=== PATIENT | male | born 1980 | race Caucasian/White ===

== ENCOUNTER 2017-02-26 10:33 | Inpatient (IN) ==
[2017-02-26] MEDS ORDERED: NS 1,000 ML IV ONE (10:48)
[2017-02-26] MEDS ORDERED: ATIVAN IV ONE (10:48)
[2017-02-26] MEDS ORDERED: THIAMINE 100 MG in NS 50 ML IV ONE (11:00)
[2017-02-26 11:30] LABS: MANUAL DIFF NEEDED? NO
[2017-02-26 11:36] LABS: BASO% 0.5 % (0.0-0.8); EOS# 0.02 X1000 (0.0-0.7); EOS% 0.2 % (0.0-10.0); HEMATOCRIT 45.1 % (42.0-52.0); LYMPH# 1.06 X1000 (1.2-3.4); LYMPH% 11.1 % (20.5-51.1); MCH 34.3 PG (27-31); MCHC 35.5 g/dL (33-37); MCV 96.8 FL (81-99); MONO# 0.81 X1000 (0.11-0.59); MONO% 8.5 % (1.7-9.3); MPV 9.3 FL (7.4-10.4); NEUT% 79.7 % (42.2-75.2); PLT 156 X1000 (130-400); RBC 4.66 XMIL (4.7-6.1)
[2017-02-26 11:47] LABS: INR 0.91; PROTIME 9.5 Seconds (9.2-11.7); PTT 28.5 Seconds (22.0-36.0)
[2017-02-26] MEDS ORDERED: PROTONIX IV ONE (11:47)
[2017-02-26] MEDS ORDERED: SODIUM CHLORIDE 0.9% INJ ONE (11:47)
[2017-02-26 12:06] LABS: AGAP 20; ALBUMIN 4.8 g/dL (3.5-5.0); ALKALINE PHOSPHATASE 100 U/L (32-122); BUN 6 mg/dL (8-22); CHLORIDE 93 mmol/L (98-107); CK PROFILE 93 U/L (24-204); COSMO 270; GOT 311 U/L (10-34); GPT 398 U/L (10-44); MAGNESIUM 1.9 mg/dL (1.5-2.7); POTASSIUM 3.8 mmol/L (3.5-5.1); SODIUM 136 mmol/L (136-145); TCO2 23 mmol/L (25-35); TOTAL BILIRUBIN 0.97 mg/dL (0.20-1.00); TOTAL PROTEIN 7.7 g/dL (6.3-8.3)
[2017-02-26 12:46] LABS: URINE CULTURE NEEDED? NO; URINE MICRO REVIEW NEEDED? NO; URINE SOURCE CLEAN CATCH
[2017-02-26 12:50] LABS: BILIRUBIN URINE NEGATIVE (NEGATIVE); BLOOD URINE NEGATIVE (NEGATIVE); COLOR YELLOW; GLUCOSE URINE NEGATIVE (NEGATIVE); LEUKOCYTES URINE NEGATIVE (NEGATIVE); NITRITE URINE NEGATIVE (NEGATIVE); PROTEIN URINE NEGATIVE (NEGATIVE); TURBIDITY URINE CLEAR (CLEAR); UROBILINOGEN URINE NORMAL (NORMAL)
[2017-02-26 12:51] LABS: UR EPITHELIAL CELLS <10 /HPF (<10); URINE BACTERIA NEGATIVE /HPF; URINE RBC <10 /HPF (<10); URINE WBC <10 /HPF (<10)
[2017-02-26 13:05] LABS: UR AMPHETAMINES QUAL NONE DETECTED (NONE DETECT); UR BARBITUATES QUAL NONE DETECTED (NONE DETECT); UR BENZODIAZEPIN QUAL NONE DETECTED (NONE DETECT); UR CANNABINOIDS QUAL NONE DETECTED (NONE DETECT); UR COCAINE QUAL NONE DETECTED (NONE DETECT); UR METHADONE QUAL NONE DETECTED (NONE DETECT); UR OPIATES QUAL NONE DETECTED (NONE DETECT); UR OXYCODONE QUAL NONE DETECTED (NONE DETECT); UR PCP QUAL NONE DETECTED (NONE DETECT)
[2017-02-26] MEDS ORDERED: M.V.I.-12 10 ML, FOLIC ACID 1 MG, MAGNESIUM SULFATE 1 GM, THIAMINE 100 MG in NS 1,000 ML IV ONE (14:45)
[2017-02-26] MEDS ORDERED: M.V.I.-12 10 ML, FOLIC ACID 1 MG, MAGNESIUM SULFATE 1 GM, THIAMINE 100 MG in NS 1,000 ML IV SCH (15:00)
[2017-02-26] MEDS ORDERED: NS 1,000 ML IV PRN (17:29)
[2017-02-26] MEDS ORDERED: ZOFRAN IV PRN (17:29)
[2017-02-26] MEDS: PHENOBARBITAL IV PRN ×2 (18:02→23:42)
[2017-02-26] MEDS: PRILOSEC PO SCH (20:40)
[2017-02-26] MEDS: LIBRIUM PO PRN (20:40)
[2017-02-26] MEDS: ATIVAN IV PRN (20:48)
[2017-02-27] MEDS: LIBRIUM PO PRN (04:10)
[2017-02-27] MEDS: ATIVAN IV PRN ×4 (04:12→22:23)
[2017-02-27 06:45] LABS: MANUAL DIFF NEEDED? NO
[2017-02-27 06:55] LABS: BASO% 0.9 % (0.0-0.8); EOS# 0.15 X1000 (0.0-0.7); EOS% 1.9 % (0.0-10.0); HEMOGLOBIN 14.5 g/dL (14.0-18.0); IMM GRAN# 0.01 X1000 (0.0-0.04); IMM GRAN% 0.1 % (0.0-0.5); LYMPH# 1.46 X1000 (1.2-3.4); LYMPH% 18.9 % (20.5-51.1); MCH 33.6 PG (27-31); MCHC 33.7 g/dL (33-37); MCV 99.5 FL (81-99); MONO# 0.91 X1000 (0.11-0.59); MONO% 11.8 % (1.7-9.3); MPV 10.1 FL (7.4-10.4); NEUT% 66.4 % (42.2-75.2); PLT 140 X1000 (130-400); RBC 4.32 XMIL (4.7-6.1)
[2017-02-27 07:10] LABS: PTT PL 32.7 Seconds (22.6-43.9)
[2017-02-27 07:15] LABS: AGAP 11; ALBUMIN 4.1 g/dL (3.5-5.0); ALKALINE PHOSPHATASE 104 U/L (32-122); BUN 9 mg/dL (8-22); CHLORIDE 102 mmol/L (98-107); COSMO 276; GOT 162 U/L (10-34); GPT 296 U/L (10-44); MAGNESIUM 2.2 mg/dL (1.5-2.7); POTASSIUM 3.5 mmol/L (3.5-5.1); SODIUM 139 mmol/L (136-145); TCO2 27 mmol/L (25-35); TOTAL PROTEIN 6.5 g/dL (6.3-8.3)
[2017-02-27 08:02] LABS: INR 0.88 (0.86-1.15); PROTIME 12.7 Seconds (12.1-15.5)
[2017-02-27] MEDS: PRILOSEC PO SCH ×2 (08:36→20:26)
[2017-02-27] MEDS: LIBRIUM PO SCH ×4 (10:15→22:23)
[2017-02-27] MEDS: LIORESAL PO SCH ×3 (10:15→16:24)
[2017-02-27] MEDS ORDERED: [UNRECOGNIZED DRUG - OTHER] IV SCH (15:00)
[2017-02-27] MEDS ORDERED: MAGNESIUM SULFATE IV SCH (15:00)
[2017-02-27] MEDS ORDERED: THIAMINE IV SCH (15:00)
[2017-02-27] MEDS ORDERED: FOLIC ACID IV SCH (15:00)
[2017-02-27] MEDS ORDERED: M V I IV SCH (15:00)
[2017-02-27] MEDS: PHENOBARBITAL IV PRN (20:39)
[2017-02-27] MEDS ORDERED: NICODERM PATCH TD ONE (21:05)
[2017-02-28] MEDS: ATIVAN IV PRN ×2 (03:21→08:17)
[2017-02-28] MEDS: LIBRIUM PO SCH ×2 (04:54→11:20)
[2017-02-28 06:18] LABS: DIRECT BILIRUBIN 0.2 mg/dL (0.00-0.20); TOTAL BILIRUBIN 0.8 mg/dL (0.20-1.00); TOTAL PROTEIN 6.4 g/dL (6.3-8.3)
[2017-02-28] MEDS ORDERED: PHENOBARBITAL IV PRN (07:33)
[2017-02-28] MEDS ORDERED: PRILOSEC PO SCH (07:45)
[2017-02-28] MEDS: LIORESAL PO SCH (08:17)
[2017-02-28] MEDS ORDERED: NICODERM PATCH TD SCH (09:00)
[2017-02-28 10:15] LABS: HEPATITIS PROFILE ACUTE SEE COMMENTS
[2017-02-28 12:14] VITALS: BP 147/99
== END 2017-02-28 14:10 | disposition home or self-care (01) ==
LOC: ED 10:33 → P.ICU 15:01 → SUATTDRO 15:01 → P.MEDSURG 02-27 15:43
PROVIDERS: ADMIT Emergency Medicine; ATTEND Family Medicine